=== PATIENT | male | born 1945 | race Asian ===

== ENCOUNTER 2019-07-15 05:59 | Day surgery (SDC) | payer OTHER ==
[~2019-07-15] VITALS: Ht 162.6 cm; Wt 49.1 kg
[~2019-07-15 05:59] MED LIST: METO50TA9 PO; MULT-1259 PO; SODIUM CHLORIDE 0.9% 1,000 ML IV ONE; VALS1TAB50 PO
[2019-07-15] MEDS ORDERED: LIDOCAINE 4% 50 ML SOLUTION TP ONE (06:00)
[2019-07-15] MEDS ORDERED: ALBUTEROL SULFATE 2.5 MG/0.5 ML NEB SOLUTION NEB ONE (06:00)
[2019-07-15] MEDS ORDERED: BENZOCAINE 20% 50 MCG/SPRAY 57 GM TP ONE (06:00)
[2019-07-15] MEDS ORDERED: LIDOCAINE 2% 30 ML JELLY TP ONE (06:00)
[2019-07-15] MEDS ORDERED: SODIUM CHLORIDE 0.9% 1,000 ML IV ONE (07:00)
[2019-07-15] MEDS ORDERED: MIDAZOLAM HCL 2 MG/2 ML VIAL ONE (08:10)
[2019-07-15] MEDS ORDERED: FentaNYL CITRATE-PF 100 MCG/2 ML VIAL ONE (08:11)
[2019-07-15] MEDS ORDERED: MethylPREDNISolone SOD SUCC 125 MG/2 ML VIAL ONE (08:44)
[2019-07-15] MEDS ORDERED: MethylPREDNISolone SOD SUCC 125 MG/2 ML VIAL IVP ONE (08:45)
[2019-07-15] MEDS ORDERED: OXYGEN THERAPY IH SCH (20:00)
== END 2019-07-15 10:20 | disposition home or self-care (01) ==
LOC: SURGERY 05:59
PROVIDERS: ATTEND Internal Medicine Critical Care Medicine
DX: R05 Cough (principal); J98.8 Other specified respiratory disorders; J34.89 Other specified disorders of nose and nasal sinuses; J38.4 Edema of larynx; B37.0 Candidal stomatitis; I10 Essential (primary) hypertension; Z79.899 Other long term (current) drug therapy
CPT/HCPCS: 31623; 31624; 71045; 87015; 87070; 87101; 87205; 87206; 87220; 88108; 88312; 93005; J2250; J2930; J3010; J7030